=== PATIENT | female | born 1980 | race Caucasian/White ===

== ENCOUNTER → 2018-08-03 14:38 | Outpatient (CLI) | payer OTHER, SELFPAY ==
[2018-08-03 17:25] LABS: Amphetamine/Metha Screen,Urine Negative ng/mL (<1000); Barbiturates Screen,Urine Negative ng/mL (<200); Benzodiazepines Screen,Urine Negative ng/mL (<200); Cannabinoid Screen,Urine Negative ng/mL (<50); Cocaine Screen,Urine Negative ng/mL (<300); Methadone Screen,Urine Negative ng/mL (<300); Opiate Screen,Urine Negative ng/mL (<300); Phencyclidine Screen,Urine Negative ng/mL (<25)
== END ==
PROVIDERS: Visit Provider Nurse Practitioner Family
DX: Z79.899 Other long term (current) drug therapy (principal)
CPT/HCPCS: 80305

== ENCOUNTER 2021-06-18 21:24 | Emergency (ER) | payer OTHER, SELFPAY ==
--- NOTE | 2021-06-18 21:22 | ECG_ITS ---
APPROVED REPORT Exam: Resting ECG HR:109 bpm ECG Measurements Heart Rate 109 AXES DC 142 P 74 QRSd 85 QRS 73 QT 315 T 65 QTc 379 Conclusion SINUS TACHYCARDIA MODERATE ST DEPRESSION [0.05+ mV ST DEPRESSION] ABNORMAL ECG UNCONFIRMED REPORT Electronically signed by : Fan Teixeira MD 06/20/2021 12:14:57
[2021-06-18 21:24] VITALS: BP 157/107; PULSE 115; RESP 18; TEMP 37.1; O2SAT 98; BMI 25.4
--- NOTE | 2021-06-18 21:28 | XR_ITS ---
PROCEDURE INFORMATION: Exam: XR Chest Exam date and time: 06/18/2021 9:27 PM Age: 40 years old Clinical indication: Sternal or substernal pain; Additional info: Cp TECHNIQUE: Imaging protocol: XR of the chest. Views: 2 views. COMPARISON: No relevant prior studies available. FINDINGS: Lungs: Unremarkable. No consolidation. Pleural spaces: Unremarkable. No pleural effusion. No pneumothorax. Heart/Mediastinum: Unremarkable. No cardiomegaly. Bones/joints: Unremarkable. IMPRESSION: No acute findings.
[2021-06-18 21:41] LABS: Basophils # 0.2 K/mm3 (0-0.2); Basophils % 2.3 % (0.1-2.0); Eosinophils # 0.4 K/mm3 (0.0-0.4); Eosinophils % 4.2 % (0.1-12.0); Hematocrit 37.7 % (37.0-47.0); Hemoglobin 12.4 g/dL (12.2-16.2); Lymphocytes # 2.2 K/mm3 (0.7-4.5); Lymphocytes % 21.8 % (10-50); Mean Corpuscular Hemoglobin 30.6 pg (27.0-31.2); Mean Corpuscular Volume 92.8 fl (81-99); Mean Platelet Volume 7.2 fl (7.4-10.4); Monocytes # 0.9 K/mm3 (0.1-1.0); Monocytes % 9.2 % (1.7-9.3); Neutrophils # 6.2 K/mm3 (1.8-7.8); Neutrophils % 62.5 % (37.0-80.0); Platelet Count 339 K/mm3 (142-424); Red Blood Count 4.06 M/mm3 (4.20-5.40); Red Cell Distribution Width 13.4 % (11.5-17.5); White Blood Count 9.9 K/mm3 (4.8-10.8)
--- NOTE | 2021-06-18 21:44 | HMH.EDCP ---
ED Disposition Clinical Impression: Atypical chest pain, Substance use disorder Disposition: Home, Self-Care Condition on Discharge: Good Instructions: DI for Atypical Chest Pain Additional Instructions: Follow-up with your primary care and return to the ER for any new or worsening symptoms. Caution should be taken with the muscle relaxer medication Robaxin and when you are using this medication you should not drive, use machinery, or perform any dangerous tasks at this would put you at risk for injury as well as the others around you. Prescriptions: methocarbamoL [Methocarbamol] 750 mg PO TID PRN 4 Days #12 tab PRN Reason: spasm Transmission Status: Pending to [facility] Referrals: Kinjal Norwood PA [Primary Care Provider] - - Critical Care Critical Care Time: No Attestation: On 06/18/21, the high probability of a clinically significant, sudden or life threatening deterioration of the following system(s) required my full and direct attention, intervention and personal management. The time I documented below is in addition to time spent performing reported procedures but includes the following listed in this critical care notation. Medical Decision Making - Medical Records Medical records reviewed: Yes: I reviewed the patient's medical records. - Tho Inquiry Pt receiving controlled substance: No Vital Signs: 06/18/21 21:24 06/18/21 22:04 Temperature 98.7 F Temperature Source Oral Pulse Rate 99 H Pulse Rate [Right] 115 H Respiratory Rate 18 Blood Pressure 122/72 Blood Pressure [Right Arm] 157/107 H Blood Pressure Mean [Right Arm] 123 02 Sat by Pulse Oximetry 98 98 Oxygen Delivery Method Room Air - Lab Data Lab Results 06/18/21 21:30: WBC 9.9, RBC 4.06 L, Hgb 12.4, Hct 37.7, MCV 92.8, MCH 30.6, MCHC 33.0, RDW 13.4, Plt Count 339, MPV 7.2 L, Neut % (Auto) 62.5, Lymph % (Auto) 21.8, [place] % (Auto) 9.2, Eos % (Auto) 4.2, Baso % (Auto) 2.3 H, Neut # (Auto) 6.2, Lymph # (Auto) 2.2, [place] # (Auto) 0.9, Eos # (Auto) 0.4, Baso # (Auto) 0.2 06/18/21 21:30: Sodium 135 L, Potassium 3.7, Chloride 103, Carbon Dioxide 27, Anion Gap 8.7, BUN 8, Creatinine 0.60, Estimated Creat Clear 138, Estimated GFR 110, Est GFR ( Amer) 133, Glucose 97, Calcium 8.7, Troponin I < 0.01 06/18/21 21:30: D-Dimer 0.81 H Result diagrams: 06/18/21 21:30 06/18/21 21:30 Orders (Tests/Meds): ED MEDICATIONS Discontinued Medications Generic Name Dose Route Start Last Admin Trade Name Freq PRN Reason Stop Dose Admin Acetaminophen 1,000 mg 06/18/21 21:31 06/18/21 21:39 Acetaminophen 1,000mg/100ml Vial IV 06/18/21 21:32 Not Given ONCE ONE Acetaminophen 1,000 mg 06/18/21 21:34 06/18/21 21:36 Acetaminophen 500mg Tab PO 06/18/21 21:35 1,000 mg ONCE ONE Administration Aspirin 324 mg 06/18/21 21:28 06/18/21 21:30 Aspirin 81mg Chewable Tablet PO 06/18/21 21:29 324 mg ONCE ONE Administration Belladonna Alkaloids 60 ml 06/18/21 21:32 06/18/21 21:36 Gi Cocktail 60ml Udc PO 06/18/21 21:33 60 ml ONCE ONE Administration Iopamidol 70 ml 06/18/21 22:36 06/18/21 22:37 Iopamidol-370 (76%);100ml Bottle IV 06/18/21 22:37 70 ml ONCE ONE Administration Ketorolac Tromethamine 30 mg 06/18/21 21:31 06/18/21 21:36 Ketorolac 30mg/Ml Vial IV 06/18/21 21:32 30 mg ONCE ONE Administration Sodium Chloride 50 ml 06/18/21 22:36 06/18/21 22:37 0.9 % Sodium Chloride 50 Ml Vial IV 06/18/21 22:37 50 ml ONCE ONE Administration Sodium Chloride 10 ml 06/18/21 22:36 06/18/21 22:37 Sodium Chloride 0.9% 10ml Syr (Rad Only) IV 06/18/21 22:37 10 ml ONCE ONE Administration ORDERS Category Date Time Status Troponin I Q3H Lab 06/19/21 00:30 Ordered Troponin I Q3H Lab 06/19/21 03:30 Ordered - CT Data CT Scan: Chest Time Received: 23:[address] Reviewed: Yes: I have viewed the radiologist's interpretation Preliminary Findings
[2021-06-18 21:47] LABS: Anion Gap 8.7 mEq/L (5-15); Blood Urea Nitrogen 8 mg/dl (7-17); Calcium 8.7 mg/dl (8.4-10.2); Carbon Dioxide 27 mmol/L (22.0-30.0); Chloride 103 mmol/L (98-107); Creatinine Clearance Estimated 138 mL/min (50-200); Estimated Glomerular Filt Rate 110 ml/min (>60); GFR (African American) 133 ML/MIN (>60); Glucose 97 mg/dl (74-100); Potassium 3.7 mmoL/L (3.5-5.1); Sodium 135 mmol/L (136-145)
[2021-06-18 21:52] LABS: D-Dimer 0.81 ug/mL (0.0-0.5)
[2021-06-18 22:01] LABS: Troponin I < 0.01 ng/ml (0.00-0.034)
[2021-06-18 22:04] VITALS: BP 122/72; PULSE 99; O2SAT 98
--- NOTE | 2021-06-18 22:11 | CT_ITS ---
PROCEDURE INFORMATION: Exam: CTA Chest With Contrast Exam date and time: 06/18/2021 10:26 PM Age: 40 years old Clinical indication: Sternal or substernal pain; Additional info: Chest pain/ tachycardia/ elenita dimer/ pe suspected TECHNIQUE: Imaging protocol: Computed tomographic angiography of the chest with contrast. 3D rendering (Not supervised by radiologist): MIP and/or 3D reconstructed images were created by the technologist. Radiation optimization: All CT scans at this facility use at least one of these dose optimization techniques: automated exposure control; mA and/or kV adjustment per patient size (includes targeted exams where dose is matched to clinical indication); or iterative reconstruction. Contrast material: ISOVUE; Contrast volume: 70 ml; Contrast route: INTRAVENOUS (IV); COMPARISON: CR XR CHEST 2V 06/18/2021 9:27 PM FINDINGS: Pulmonary arteries: The pulmonary trunk, main, and branch pulmonary arteries contain no filling defects. Aorta: Unremarkable. No aortic aneurysm. No aortic dissection. Lungs: Unremarkable. No consolidation. No masses. Pleural spaces: Unremarkable. No pneumothorax. No pleural effusion. Heart: No cardiomegaly. No pericardial effusion. Heart RV/LV ratio: Within normal limits. Coronary arteries: There is no evidence of significant coronary artery calcifications. Mediastinal space: No evidence of mediastinal or hilar mass. Granulomatous calcification within the right hilus. Lymph nodes: Unremarkable. No enlarged lymph nodes. Bones/joints: Unremarkable. No acute fracture. Soft tissues: Unremarkable. IMPRESSION: 1. No evidence of main or branch pulmonary embolism. 2. No evidence of acute process within the chest.
--- NOTE | 2021-06-18 22:24 | PC.NURSE ---
Pt gone to RAD
--- NOTE | 2021-06-18 22:35 | PC.NURSE ---
Pt back from RAD
[2021-06-19 00:28] VITALS: BP 134/73; PULSE 90; RESP 18; TEMP 37.1; O2SAT 99
== END 2021-06-19 00:28 | disposition home or self-care (01) ==
PROVIDERS: Emergency Provider Student in an Organized Health Care Education/Training Program; PCP Physician Assistant
DX: R07.2 Precordial pain (principal); M25.579 Pain in unspecified ankle and joints of unspecified foot; R00.0 Tachycardia, unspecified; I10 Essential (primary) hypertension; K21.9 Gastro-esophageal reflux disease without esophagitis; M19.90 Unspecified osteoarthritis, unspecified site; G40.909 Epilepsy, unspecified, not intractable, without status epilepticus; B19.20 Unspecified viral hepatitis C without hepatic coma; F32.A Depression, unspecified; F17.210 Nicotine dependence, cigarettes, uncomplicated; Z79.1 Long term (current) use of non-steroidal anti-inflammatories (NSAID); Z79.51 Long term (current) use of inhaled steroids; Z79.82 Long term (current) use of aspirin; Z79.899 Other long term (current) drug therapy; Z82.49 Family history of ischemic heart disease and other diseases of the circulatory system; Z80.9 Family history of malignant neoplasm, unspecified; Z88.5 Allergy status to narcotic agent; Z83.3 Family history of diabetes mellitus
CPT/HCPCS: 71046; 71275; 80048; 84484; 85025; 85378; 93005; 99285; Q9967

== ENCOUNTER 2021-06-25 22:03 | Emergency (ER) | payer OTHER, SELFPAY ==
[2021-06-25 22:05] VITALS: BP 117/71; PULSE 110; RESP 20; TEMP 37.3; O2SAT 99; BMI 25.4
--- NOTE | 2021-06-25 22:24 | XR_ITS ---
PROCEDURE INFORMATION: Exam: XR Chest Exam date and time: 06/25/2021 10:51 PM Age: 40 years old Clinical indication: Mass, lump, or swelling in the chest; Patient HX: Abscess left side chest with redness extending into neck, was seen last week but has worsened TECHNIQUE: Imaging protocol: XR of the chest. Views: 2 views. COMPARISON: CR XR CHEST 2V 06/18/2021 9:27 PM FINDINGS: Lungs: There is an area of consolidation in the left upper lobe which corresponds to a pleural abscess and surrounding pneumonia as described on chest CT done the same day. Pleural spaces: No pleural effusion. No pneumothorax. Heart/Mediastinum: Unremarkable. No cardiomegaly. Bones/joints: Unremarkable. IMPRESSION: Large area of opacity in the left upper lobe corresponding to an abscess and surrounding pneumonia as described on chest CT performed the same day.
--- NOTE | 2021-06-25 22:24 | CT_ITS ---
PROCEDURE INFORMATION: Exam: CT Cervical Spine With Contrast Exam date and time: 06/25/2021 11:02 PM Age: 40 years old Clinical indication: Condition or disease; Patient HX: Abscess left side chest with redness extending into neck, was seen last week but has worsened TECHNIQUE: Imaging protocol: Computed tomography images of the cervical spine with intravenous contrast. Radiation optimization: All CT scans at this facility use at least one of these dose optimization techniques: automated exposure control; mA and/or kV adjustment per patient size (includes targeted exams where dose is matched to clinical indication); or iterative reconstruction. Contrast material: ISOVUE; Contrast volume: 45 ml; Contrast route: IV; COMPARISON: CT ANGIO CHEST PE PROTOCOL 06/18/2021 10:26 PM FINDINGS: Bones/joints: No acute fracture. Normal alignment. Discs/Spinal canal/Neural foramina: No significant disc protrusion. No severe spinal canal stenosis. No significant neural foraminal narrowing. Lungs: Lung apices are normal. Soft tissues: Large abscess in the left side of the neck beginning at the level of the left lobe of the thyroid gland and extending inferiorly to involve the medial aspect of the pectoralis muscle and left paratracheal region and infraclavicular region. IMPRESSION: Large abscess in the left side of the lower neck and chest. Please refer to chest CT done the same day for further details. No acute bony abnormality in the cervical spine.
--- NOTE | 2021-06-25 22:24 | CT_ITS ---
PROCEDURE INFORMATION: Exam: CT Chest With Contrast; Diagnostic Exam date and time: 06/25/2021 11:08 PM Age: 40 years old Clinical indication: Mass, lump, or swelling in the chest; Patient HX: Abscess left side chest with redness extending into neck, was seen last week but has worsened TECHNIQUE: Imaging protocol: Diagnostic computed tomography of the chest with contrast. Radiation optimization: All CT scans at this facility use at least one of these dose optimization techniques: automated exposure control; mA and/or kV adjustment per patient size (includes targeted exams where dose is matched to clinical indication); or iterative reconstruction. Contrast material: ISOVUE; Contrast volume: 50 ml; Contrast route: IV; COMPARISON: CT ANGIO CHEST PE PROTOCOL 06/18/2021 10:26 PM FINDINGS: Lungs: See Pleural spaces finding. Pleural spaces: In the left upper lobe there is ground-glass opacities around the abscess in the left anterior pleural space concerning for pneumonia. Heart: Unremarkable. No cardiomegaly. No pericardial effusion. Mediastinal space: The irregularly-shaped abscess beginning in the left side of the neck abutting the left lobe of the thyroid gland extending inferiorly to involve the medial aspect of the left sternocleidomastoid muscle and extending into the anterior mediastinum and through the left chest wall into the left upper lobe pleural space. This is new when compared to the previous study. The largest extent of this abscess in the anterior left upper lobe/pleural space measures 8.2 by 4.0 cm and the largest extent of the soft tissue portion of the abscess measures 4 cm. Lymph nodes: Enlarged mediastinal lymph nodes. Vasculature: Unremarkable. No aortic aneurysm. Bones/joints: Unremarkable. No acute fracture. Soft tissues: See Mediastinal space finding. IMPRESSION: Large abscess in the left side of the neck base extending into the upper chest and anterior mediastinum and left upper lobe as described above. There is surrounding pneumonia in the left upper lobe.
[2021-06-25 22:33] LABS: Basophils # 0.4 K/mm3 (0-0.2); Basophils % 1.1 % (0.1-2.0); Eosinophils # 0.4 K/mm3 (0.0-0.4); Eosinophils % 1.1 % (0.1-12.0); Hematocrit 33.7 % (37.0-47.0); Hemoglobin 10.6 g/dL (12.2-16.2); Lymphocytes # 2.5 K/mm3 (0.7-4.5); Lymphocytes % 7.2 % (10-50); Mean Corpuscular HGB Conc 31.5 g/dL (31.8-35.4); Mean Corpuscular Hemoglobin 29.2 pg (27.0-31.2); Mean Platelet Volume 7.6 fl (7.4-10.4); Monocytes % 2.9 % (1.7-9.3); Neutrophils # 30.1 K/mm3 (1.8-7.8); Neutrophils % 88.7 % (37.0-80.0); Platelet Count 763 K/mm3 (142-424); Red Blood Count 3.63 M/mm3 (4.20-5.40); Red Cell Distribution Width 14.4 % (11.5-17.5); White Blood Count 33.9 K/mm3 (4.8-10.8)
[2021-06-25 22:35] LABS: Coronavirus 19, PCR Not Detected (NotDetected); Influenza A, PCR Not Detected (NotDetected); Influenza B, PCR Not Detected (NotDetected)
[2021-06-25 22:40] LABS: MANUAL DIFFERENTIAL MANUAL DIFFERENTIAL (MANUAL DIFF)
[2021-06-25 22:41] LABS: HCG Qualitative, Serum Negative (Negative)
[2021-06-25 22:43] LABS: Alanine Aminotransferase 49 U/L (12-78); Albumin/Globulin Ratio 0.9 (1.1-1.8); Alkaline Phosphatase 210 U/L (38-126); Anion Gap 12.5 mEq/L (5-15); Aspartate Amino Transferase 63 U/L (14-36); Bilirubin,Total 0.2 mg/dl (0.2-1.3); Blood Urea Nitrogen 28 mg/dl (7-17); Calcium 8.8 mg/dl (8.4-10.2); Carbon Dioxide 22 mmol/L (22.0-30.0); Chloride 99 mmol/L (98-107); Creatinine Clearance Estimated 52 mL/min (50-200); Estimated Glomerular Filt Rate 35 ml/min (>60); GFR (African American) 43 ML/MIN (>60); Globulin 3.5 g/dL (1.3-3.2); Glucose 124 mg/dl (74-100); Sodium 131 mmol/L (136-145); Total Protein,Serum 6.5 g/dl (6.3-8.2)
[2021-06-25 22:46] LABS: Potassium 2.5 mmoL/L (3.5-5.1)
[2021-06-25 22:48] LABS: C-Reactive Protein 156.1 mg/L (0-4)
--- NOTE | 2021-06-25 22:52 | PC.NURSE ---
notified audelia of critical potassium of 2.5
[2021-06-25 23:01] LABS: Procalcitonin 0.492 ng/mL (0.0-2.0)
--- NOTE | 2021-06-25 23:07 | HMH.EDSKAF ---
ED Disposition Clinical Impression: SIRS (systemic inflammatory response syndrome), IVDU (intravenous drug user), KELLEE (acute kidney injury), Amphetamine use, Hypokalemia Abscess of skin or subcutaneous tissue Qualifiers: Site of cutaneous abscess: trunk Site of cutaneous abscess of trunk: chest wall Qualified Code(s): L02.213 - Cutaneous abscess of chest wall UTI (urinary tract infection) Qualifiers: Urinary tract infection type: site unspecified Hematuria presence: without hematuria Qualified Code(s): N39.0 - Urinary tract infection, site not specified Disposition: Xfer Short-Term Hosp Condition on Discharge: Serious Instructions: DI for Skin Abscess Additional Instructions: will transfer to [facility] Referrals: Kinjal Norwood PA [Primary Care Provider] - Forms: Transfer Record - ED - Critical Care Critical Care Time: No Attestation: On 06/25/21, the high probability of a clinically significant, sudden or life threatening deterioration of the following system(s) required my full and direct attention, intervention and personal management. The time I documented below is in addition to time spent performing reported procedures but includes the following listed in this critical care notation. Total Critical Care Time: 0 Medical Decision Making - Medical Records Medical records reviewed: Yes: I reviewed the patient's medical records. - Tho Inquiry Pt receiving controlled substance: No Vital Signs: 06/25/21 22:05 06/25/21 23:50 06/26/21 07:33 Temperature 99.1 F Temperature Source Oral Pulse Rate 101 H 96 H Pulse Rate [Apical] 110 H Respiratory Rate 20 14 Blood Pressure 113/61 112/76 Blood Pressure [Right Arm] 117/71 Blood Pressure Mean 82 Blood Pressure Mean [Right Arm] 86 Blood Pressure Source [Right Arm] Automatic Cuff Blood Pressure Position [Right Arm] Sitting 02 Sat by Pulse Oximetry 99 96 97 Oxygen Delivery Method Room Air Room Air 06/26/21 08:00 06/26/21 08:30 06/26/21 08:48 Temperature 100.0 F H Temperature Source Oral Pulse Rate 94 H 90 Pulse Rate [Apical] Respiratory Rate 15 15 Blood Pressure 99/73 L 113/72 Blood Pressure [Right Arm] Blood Pressure Mean 78 82 Blood Pressure Mean [Right Arm] Blood Pressure Source [Right Arm] Blood Pressure Position [Right Arm] 02 Sat by Pulse Oximetry 96 97 Oxygen Delivery Method 06/26/21 09:00 06/26/21 09:30 06/26/21 10:00 Temperature Temperature Source Pulse Rate 92 H 92 H 89 Pulse Rate [Apical] Respiratory Rate 15 16 15 Blood Pressure 112/65 123/83 110/67 Blood Pressure [Right Arm] Blood Pressure Mean 80 92 81 Blood Pressure Mean [Right Arm] Blood Pressure Source [Right Arm] Blood Pressure Position [Right Arm] 02 Sat by Pulse Oximetry 100 97 96 Oxygen Delivery Method 06/26/21 10:30 06/26/21 11:00 06/26/21 11:30 Temperature Temperature Source Pulse Rate 84 80 85 Pulse Rate [Apical] Respiratory Rate 15 16 16 Blood Pressure 107/64 L 115/73 110/75 Blood Pressure [Right Arm] Blood Pressure Mean 77 80 81 Blood Pressure Mean [Right Arm] Blood Pressure Source [Right Arm] Blood Pressure Position [Right Arm] 02 Sat by Pulse Oximetry 100 100 98 Oxygen Delivery Method 06/26/21 12:00 06/26/21 12:16 06/26/21 12:30 Temperature 98.6 F Temperature Source Oral Pulse Rate 76 67 Pulse Rate [Apical] Respiratory Rate 15 15 Blood Pressure 113/76 116/72 Blood Pressure [Right Arm] Blood Pressure Mean 84 81 Blood Pressure Mean [Right Arm] Blood Pressure Source [Right Arm] Blood Pressure Position [Right Arm] 02 Sat by Pulse Oximetry 99 99 Oxygen Delivery Method 06/26/21 13:00 06/26/21 13:30 Temperature Temperature Source Pulse Rate 77 84 Pulse Rate [Apical] Respiratory Rate 16 Blood Pressure 115/77 124/89 Blood Pressure [Right Arm] Blood Pressure Mean 82 97 Blood Pressure Mean [Right Arm
[2021-06-25 23:24] LABS: Eosinophils % 5 % (0-3); Lymphocytes % 9 % (10-50); Neutrophils % 86 % (42-76); Platelet Estimate Normal; Total Cells Counted 100
[2021-06-25 23:25] LABS: Macrocytosis 1+
[2021-06-25 23:31] LABS: Erythrocyte Sedimentation Rate > 140 mm/hr (0-20)
[2021-06-25 23:50] VITALS: BP 113/61; PULSE 101; O2SAT 96
[2021-06-26] VITALS (20 sets, daily range): BP systolic 99–131; BP diastolic 64–89; PULSE 67–98; RESP 14–20; TEMP 36.9–37.8; O2SAT 96–100
[2021-06-26 00:05] LABS: Lactic Acid 1.4 mmol/L (0.7-2.1)
[2021-06-26 00:12] LABS: Microscopic, Urine URINE MICROSCOPIC (MICROSCOPIC)
[2021-06-26 00:29] LABS: Appearance,Urine CLOUDY (Clear); Bilirubin,Urine Negative (Negative); Blood, Urine 3+ (Negative); Color,Urine DK YELLOW (Yellow); Glucose,Urine (UA) Negative (Negative); Ketones,Urine Negative (Negative); Leukocyte Esterase,Urine 1+ (Negative); Nitrate,Urine POSITIVE (Negative); Protein,Urine 1+ (Negative)
--- NOTE | 2021-06-26 00:29 | PC.NURSE ---
phone call to [facility] re: transfer
[2021-06-26 00:31] LABS: Bacteria,Urine 3+ /lpf; RBC,Urine 20-50 #/hpf (0-3); WBC,Urine 20-50 #/hpf (0-3)
--- NOTE | 2021-06-26 00:36 | PC.NURSE ---
Dr. Weems, hospitalist at , paged re: patient transfer
[2021-06-26 01:22] LABS: Benzodiazepines Screen,Urine Negative ng/ml (<200)
[2021-06-26 01:23] LABS: Barbiturates Screen,Urine Negative ng/ml (<200)
[2021-06-26 01:24] LABS: Cannabinoid Screen,Urine Negative ng/ml (<50); Opiate Screen,Urine Negative ng/ml (<300)
[2021-06-26 01:25] LABS: Methadone Screen,Urine Negative ng/ml (<300)
[2021-06-26 01:26] LABS: Phencyclidine Screen,Urine Negative ng/ml (<25)
[2021-06-26 01:35] LABS: Cocaine Screen,Urine Negative ng/ml (<300)
--- NOTE | 2021-06-26 01:55 | PC.NURSE ---
call to [facility] transfer [facility], spoke with Dr. Sha Jennings spoke with Dr. Saenz, [facility] hospitalist re: transfer, at 0130 Dr. Dalton spoke to Dr. Brown, CT surgeon. Patient was placed on waiting list for a bed. Spoke to Ramona at [facility] re: transfer Dr. Weems, hospitalist, spoke with Dr. Dalton, Dr. Arboleda, thoracic surgeon called stated that patient would also need an ENT to assist with surgery and that was not available at their facility and recommended transfer to . Call placed to [facility], patient information given and patient was placed on waiting list. Call to [facility], Dr. Dalton spoke to Dr. Sanabria re transfer, patient placed on waiting list for a bed
--- NOTE | 2021-06-26 02:09 | PC.NURSE ---
Patient is currently resting in bed.
--- NOTE | 2021-06-26 03:47 | PC.NURSE ---
PATIENT PLACED IN [facility] BED FOR COMFORT
--- NOTE | 2021-06-26 05:19 | PC.NURSE ---
CALL FROM [facility], STILL NO ROOMS AVAILABLE
--- NOTE | 2021-06-26 07:36 | PC.NURSE ---
checked on pt at this time, pt sleeping. VS obtained. pt given another pillow for comfort. Call light placed on bed rail. will continue to monitor.
--- NOTE | 2021-06-26 07:54 | HMH.PHACONS ---
- Pharmacy Consult Date: 06/26/21 Time: 07:54 Referring provider: DR. MICHAEL Reason for Consult:: VANCOMYCIN DOSING Allergies and ADEs:: Allergies Allergy/AdvReac Type Severity Reaction Status Date / Time codeine [CODEINE] Allergy Unknown Verified 11/28/20 15:04 Home Medications:: Home Medications Medication Instructions Recorded Confirmed Type fluticasone propionate 50 See Rx Instructions .ROUTE 06/23/20 11/28/20 Rx mcg/actuation nasal .COMPLEX #16 g spray,suspension buprenorphine 8 mg-naloxone 2 mg 2 tab SUBLINGUAL DAILY tab 11/28/20 11/28/20 History sublingual tablet bupropion HCl 450 mg 24 hr tablet, 450 mg PO DAILY tab 11/28/20 11/28/20 History extended release gabapentin 800 mg tablet 800 mg PO TID #90 tab 11/28/20 11/28/20 Rx vitamins no.170-iron 1 tab PO DAILY tab 11/28/20 11/28/20 History fumarate 27 mg-folic acid 1 mg tablet escitalopram oxalate 10 mg tablet See Rx Instructions .ROUTE 01/21/21 Rx .COMPLEX #30 tab ibuprofen 600 mg tablet See Rx Instructions .ROUTE 01/21/21 Rx .COMPLEX #60 tab lisinopril 20 See Rx Instructions .ROUTE 01/21/21 Rx mg-hydrochlorothiazide 25 mg tablet .COMPLEX #30 tab omeprazole 40 mg capsule,delayed See Rx Instructions .ROUTE 01/21/21 Rx release .COMPLEX #30 cap quetiapine 100 mg tablet 100 mg PO BID #180 tab 03/02/21 Rx methocarbamoL [Methocarbamol] 750 mg PO TID PRN 4 Days #12 tab 06/19/21 Rx Height: 1.68 m Weight: 71.668 kg Laboratory Results:: Laboratory Results - last 24 hr 06/25/21 22:22: WBC 33.9 H*, RBC 3.63 L, Hgb 10.6 L, Hct 33.7 L, MCV 93.0, MCH 29.2, MCHC 31.5 L, RDW 14.4, Plt Count 763 H, MPV 7.6, Neut % (Auto) 88.7 H, Lymph % (Auto) 7.2 L, [place] % (Auto) 2.9, Eos % (Auto) 1.1, Baso % (Auto) 1.1, Neut # (Auto) 30.1 H, Lymph # (Auto) 2.5, [place] # (Auto) 1.0, Eos # (Auto) 0.4, Baso # (Auto) 0.4 H, Total Counted 100, Neutrophils % (Manual) 86 H, Lymphocytes % (Manual) 9 L, Eosinophils % (Manual) 5 H, Platelet Estimate Normal, Macrocytosis 1+, ESR > 140 H 06/25/21 22:22: Sodium 131 L, Potassium 2.5 L*, Chloride 99, Carbon Dioxide 22, Anion Gap 12.5, BUN 28 H, Creatinine 1.60 H, Estimated Creat Clear 52, Estimated GFR 35 L, Est GFR ( Amer) 43 L, Glucose 124 H, Calcium 8.8, Total Bilirubin 0.2, AST 63 H, ALT 49, Alkaline Phosphatase 210 H, C-Reactive Protein 156.1 H, Total Protein 6.5, Albumin 3.0 L, Globulin 3.5 H, Albumin/Globulin Ratio 0.9 L, Procalcitonin 0.492 06/25/21 22:22: Serum HCG, Qual Negative 06/25/21 22:22: Lactate 1.4 06/25/21 22:29: SARS-CoV-2 (PCR) Not detected, Influenza A Untype (PCR) Not detected, Influenza Type B (PCR) Not detected 06/26/21 00:02: Urine Color Dk yellow, Urine Appearance Cloudy, Urine pH 6.0, Ur Specific [place] 1.010, Urine Protein 1+, Urine Glucose (UA) Negative, Urine Ketones Negative, Urine Blood 3+, Urine Nitrate Positive, Urine Bilirubin Negative, Urine Urobilinogen 1.0, Ur Leukocyte Esterase 1+ A, Urine RBC 20-50, Urine WBC 20-50, Ur Squamous Epith Cells 10-20, Urine Bacteria 3+ 06/26/21 00:02: Urine Opiates Screen Negative, Urine Methadone Screen Negative, Ur Barbituates Screen Negative, Ur Phencyclidine Scrn Negative, 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 Drug selected: Vancomycin Loading dose (mg): 0 Vd (liters): 57.4 (factor used: 0.8 L/kg) Ramiro (hr-1): 0.040 Half life (hrs): 17.33 Recommended dose: 1250 mg Int
--- NOTE | 2021-06-26 08:34 | PC.NURSE ---
updated [facility] about pt radiology reports, vitals, pt complaints and antibiotics pt is receiving. Radiology notified to [facility] at this time. [facility] states they are going try to reach out to surgery doctor as well for acceptance.
--- NOTE | 2021-06-26 08:48 | PC.NURSE ---
ER gave verbal order for tylenol 1000 mg PO once time for temp 100.0 orally
--- NOTE | 2021-06-26 09:50 | PC.NURSE ---
lupillo at [facility] called to get a pt update at this time, states are still working on a bed for pt states beds are tight , no estimation on when a bed will be available.
--- NOTE | 2021-06-26 09:57 | PC.NURSE ---
pt sleeping, will continue to monitor
--- NOTE | 2021-06-26 11:02 | PC.NURSE ---
Patient's mom had called. Spoke with her about any updates on transferring her and that still does not have a room for her. Also notified patient's mom that patient is currently asleep. Told her we will call back if there are any changes.
[2021-06-26 11:42] LABS: POC Glucose,Bedside 101 (70-110)
--- NOTE | 2021-06-26 12:25 | PC.NURSE ---
contacted about possible transfer of pt. KATHERINE ISRAEL speaking with Dr. Johnston
--- NOTE | 2021-06-26 14:16 | PC.NURSE ---
Report called Lamar ELIZALDE at bed assignment [id number], floor [id number].
[2021-06-26 14:50] LABS: Potassium 4.1 mmoL/L (3.5-5.1)
--- NOTE | 2021-06-26 15:03 | PC.NURSE ---
brenden from care management is going to work on prior authorization for transport for pt, states she will fax us the confirmation
[2021-06-27 22:38] LABS: Peripheral Smear Review Scanned Result
[2021-07-08 03:44] LABS: Amphetamine Positive (.); Amphetamine (GC/MS) 3626 ng/mL (Cutoff=500); Amphetamines Positive (.); Methamphetamine Positive (.); Methamphetamine (GC/MS) >3000 ng/mL (Cutoff=500)
== END 2021-06-26 17:05 | disposition short-term general hospital (02) ==
PROVIDERS: Emergency Medicine; Emergency Provider Emergency Medicine; PCP Physician Assistant
DX: N39.0 Urinary tract infection, site not specified (principal); L02.213 Cutaneous abscess of chest wall; N17.9 Acute kidney failure, unspecified; I10 Essential (primary) hypertension; K21.9 Gastro-esophageal reflux disease without esophagitis; M79.10 Myalgia, unspecified site; G40.909 Epilepsy, unspecified, not intractable, without status epilepticus; B19.20 Unspecified viral hepatitis C without hepatic coma; F32.A Depression, unspecified; F41.9 Anxiety disorder, unspecified; Z79.1 Long term (current) use of non-steroidal anti-inflammatories (NSAID); Z79.51 Long term (current) use of inhaled steroids; Z79.899 Other long term (current) drug therapy; Z88.5 Allergy status to narcotic agent; Z20.822 Contact with and (suspected) exposure to COVID-19; Z82.49 Family history of ischemic heart disease and other diseases of the circulatory system; Z83.3 Family history of diabetes mellitus; Z80.9 Family history of malignant neoplasm, unspecified
CPT/HCPCS: 71046; 71260; 72126; 80053; 80305; 80324; 81001; 82962; 83605; 84132; 84145; 84703; 85007; 85025; 85651; 86140; 87040; 87077; 87086; 87088; 87186; 96361; 96365; 96366; 96367; 96375; 96376; 99285; C9803; J2405; Q9967; U0003; U0005

== ENCOUNTER → 2022-06-09 20:04 | Outpatient (CLI) | payer OTHER, SELFPAY ==
[2022-06-09 17:56] LABS: Basophils # 0.1 K/mm3 (0-0.2); Eosinophils # 0.7 K/mm3 (0.0-0.4); Eosinophils % 6.5 % (0.1-12.0); Hematocrit 41.3 % (37.0-47.0); Lymphocytes # 3.6 K/mm3 (0.7-4.5); Lymphocytes % 35.6 % (10-50); Mean Corpuscular HGB Conc 31.5 g/dL (31.8-35.4); Mean Corpuscular Volume 95.1 fl (81-99); Mean Platelet Volume 8.7 fl (7.4-10.4); Monocytes # 0.6 K/mm3 (0.1-1.0); Monocytes % 5.9 % (1.7-9.3); Neutrophils # 5.2 K/mm3 (1.8-7.8); Neutrophils % 50.9 % (37.0-80.0); Platelet Count 422 K/mm3 (142-424); Red Blood Count 4.34 M/mm3 (4.20-5.40); Red Cell Distribution Width 13.3 % (11.5-17.5); White Blood Count 10.1 K/mm3 (4.8-10.8)
[2022-06-09 18:31] LABS: Erythrocyte Sedimentation Rate 14 mm/hr (0-20)
[2022-06-09 19:18] LABS: Alanine Aminotransferase 20 U/L (12-78); Albumin Level 4.1 g/dl (3.5-5.0); Albumin/Globulin Ratio 1.4 (1.1-1.8); Alkaline Phosphatase 93 U/L (38-126); Anion Gap 9.1 mEq/L (5-15); Aspartate Amino Transferase 34 U/L (14-36); Bilirubin,Total 0.4 mg/dl (0.2-1.3); Blood Urea Nitrogen 5 mg/dl (7-17); Calcium 8.7 mg/dl (8.4-10.2); Carbon Dioxide 24 mmol/L (22.0-30.0); Chloride 104 mmol/L (98-107); Chol/HDL Ratio 3.2 (1-3.5); Cholesterol 150 mg/dl (140-200); Estimated Glomerular Filt Rate 109 ml/min (>60); GFR (African American) 132 ML/MIN (>60); Glucose 82 mg/dl (74-100); HDL Cholesterol 47 mg/dl (40-60); Potassium 4.1 mmoL/L (3.5-5.1); Sodium 133 mmol/L (136-145); Total Protein,Serum 7.1 g/dl (6.3-8.2); Triglycerides 95 mg/dl (30-150); VLDL Cholesterol 19 mg/dL (0-40)
[2022-06-09 19:19] LABS: Barbiturates Screen,Urine Negative ng/ml (<200)
[2022-06-09 19:20] LABS: Benzodiazepines Screen,Urine Negative ng/ml (<200)
[2022-06-09 19:21] LABS: Cannabinoid Screen,Urine Positive ng/ml (<50); Cocaine Screen,Urine Negative ng/ml (<300)
[2022-06-09 19:22] LABS: Methadone Screen,Urine Negative ng/ml (<300); Opiate Screen,Urine Negative ng/ml (<300)
[2022-06-09 19:25] LABS: Phencyclidine Screen,Urine Negative ng/ml (<25)
[2022-06-09 19:30] LABS: C-Reactive Protein 0.9 mg/L (0-4); Direct LDL Cholesterol 83.64 mg/dL (100-129)
[2022-06-09 19:48] LABS: Thyroid Stimulating Hormone 0.75 uIU/mL (0.465-4.68)
[2022-06-09 19:55] LABS: Amphetamine/Metha Screen,Urine Positive ng/ml (<1000)
[2022-06-09 21:17] LABS: 25-OH Vitamin D, Total 22.3 ng/mL (30-100)
[2022-06-11 09:21] LABS: HIV Screen 4th Generation wRfx Non Reactive (Non Reactive)
[2022-06-11 13:17] LABS: Anti-Centromere B Antibodies <0.2 AI (0.0-0.9); Anti-DNA (DS) Ab Qn <1 IU/mL (0-9); Anti-Jo-1 <0.2 AI (0.0-0.9); Anti-Smith Antibody <0.2 AI (0.0-0.9); Antichromatin Antibodies <0.2 AI (0.0-0.9); Antiscleroderma-70 Antibodies <0.2 AI (0.0-0.9); RNP Antibodies <0.2 AI (0.0-0.9); Sjogren's Anti-SS-A <0.2 AI (0.0-0.9); Sjogren's Anti-SS-B <0.2 AI (0.0-0.9)
[2022-06-11 16:21] LABS: Anti-Cyclic Citrullinated Pept 8 units (0-19); RA Latex Turbid. 13.2 IU/mL (<14.0)
[2022-06-13 21:17] LABS: HCV Genotype Charge YES; Hepatitis C Genotype 1a (.)
[2022-06-16 13:50] LABS: Hep B Core Ab, Total NEGATIVE; Hep B Surface Ab, Qual NON REACTIVE; Hepatitis B Surface Antigen NEGATIVE
[2022-06-16 13:51] LABS: Hepatitis C Antibody REACTIVE
[2022-06-16 13:52] LABS: Hep A Ab, Total NEGATIVE
== END ==
PROVIDERS: Physician Assistant; PCP Nurse Practitioner Family; Visit Provider Nurse Practitioner Family
DX: Z79.899 Other long term (current) drug therapy (principal); E87.6 Hypokalemia; Z11.59 Encounter for screening for other viral diseases; F19.10 Other psychoactive substance abuse, uncomplicated; E55.9 Vitamin D deficiency, unspecified; M25.50 Pain in unspecified joint; Z11.4 Encounter for screening for human immunodeficiency virus [HIV]
CPT/HCPCS: 80053; 80061; 80305; 82306; 83036; 84443; 85025; 85651; 86140; 86200; 86225; 86235; 86431; 86703; 86704; 86706; 86708; 87340; 87380; 87522; 87902; G0432

== ENCOUNTER → 2022-06-30 23:27 | Outpatient (CLI) | payer OTHER, SELFPAY ==
[2022-06-30 18:26] LABS: Amphetamine/Metha Screen,Urine Negative ng/ml (<1000)
[2022-06-30 18:27] LABS: Barbiturates Screen,Urine Negative ng/ml (<200); Benzodiazepines Screen,Urine Negative ng/ml (<200)
[2022-06-30 18:28] LABS: Cannabinoid Screen,Urine Negative ng/ml (<50)
[2022-06-30 18:29] LABS: Cocaine Screen,Urine Negative ng/ml (<300); Methadone Screen,Urine Negative ng/ml (<300)
[2022-06-30 18:34] LABS: Opiate Screen,Urine Negative ng/ml (<300); Phencyclidine Screen,Urine Negative ng/ml (<25)
== END ==
PROVIDERS: PCP Nurse Practitioner Family; Visit Provider Nurse Practitioner Family
DX: Z79.899 Other long term (current) drug therapy (principal)
CPT/HCPCS: 80305